=== PATIENT | female | born 1960 | race Caucasian/White ===

== ENCOUNTER 2016-04-10 08:33 | Outpatient (CLI) ==
[2016-04-10 09:23] LABS: BILIRUBIN,URINE Negative (NEGATIVE); KETONES,URINE Negative (NEGATIVE); LEUKOCYTE ESTERASE ,URINE 1+ (NEGATIVE); NITRITE,URINE Negative (NEGATIVE); PROTEIN,URINE 2+ (NEGATIVE); URINE, BLOOD 1+ (NEGATIVE)
[2016-04-10 09:30] LABS: BASOPHILS % (AUTO) 0.4 % (0.0-3.0); EOSINOPHILS # (AUTO) 0.1 K/ul (0.0-0.7); EOSINOPHILS % (AUTO) 2.6 % (0.0-7.0); HEMATOCRIT 35.6 % (37.0-47.0); IMMATURE GRANULOCYTE % (AUTO) 0.4 % (0.0-5.0); LYMPHOCYTES # (AUTO) 1.5 K/uL (0.60-3.4); LYMPHOCYTES % (AUTO) 28.3 (10.0-50.0); MEAN CORPUSCULAR HEMOGLOBIN 29.3 pg (27.0-31.0); MEAN CORPUSCULAR HGB CONC 33.7 (31.8-35.4); MEAN CORPUSCULAR VOLUME 86.8 fl (81.0-99.0); MONOCYTES # (AUTO) 0.4 K/uL (0.4-2.0); MONOCYTES % (AUTO) 7.9 (0-10); NEUTROPHILS # (AUTO) 3.2 K/ul (2.0-6.9); NEUTROPHILS % (AUTO) 60.4; PLATELET COUNT 213 10^3/uL (140-440); WHITE BLOOD COUNT 5.33 K/ul (4.6-10.2)
[2016-04-10 09:31] LABS: ADD URINE MICROSCOPIC YES
[2016-04-10 09:32] LABS: BACTERIA,URINE TRACE (NOT PRESENT)
[2016-04-10 10:54] LABS: ALBUMIN 3.9 g/dL (3.4-5.0); ALBUMIN/GLOBULIN RATIO 1.15; ANION GAP 16.5; BILIRUBIN,TOTAL 0.46 mg/dL (0.00-1.20); BUN/CREATININE RATIO 29.87; CALCIUM 9.5 mg/dL (8.2-10.2); CHOL/HDL RATIO 4.2 (4.5-5.5); CREATININE 0.77 mg/dL (0.60-1.30); POTASSIUM 3.5 mmol/L (3.5-5.10); TOTAL PROTEIN 7.3 g/dL (6.4-8.2)
== END 2016-04-10 08:34 | disposition home or self-care (01) ==
LOC: LAB 08:33
PROVIDERS: ATTEND Family Medicine
DX: E78.5 Hyperlipidemia, unspecified (principal); I10 Essential (primary) hypertension; E11.9 Type 2 diabetes mellitus without complications; Z79.899 Other long term (current) drug therapy
CPT/HCPCS: 36415; 80053; 80061; 81001; 83036; 85025

== ENCOUNTER 2016-04-28 10:50 | Outpatient (CLI) ==
[2016-04-28 11:06] LABS: BILIRUBIN,URINE Negative (NEGATIVE); KETONES,URINE Negative (NEGATIVE); LEUKOCYTE ESTERASE ,URINE Negative (NEGATIVE); NITRITE,URINE Negative (NEGATIVE); PH,URINE 5.5 (5-9); PROTEIN,URINE 1+ (NEGATIVE); URINE, BLOOD Trace-lysed (NEGATIVE)
[2016-04-28 11:11] LABS: ADD URINE MICROSCOPIC YES
== END 2016-04-28 10:51 | disposition home or self-care (01) ==
LOC: LAB 10:50
PROVIDERS: ATTEND Family Medicine
DX: N30.00 Acute cystitis without hematuria (principal)
CPT/HCPCS: 81001

== ENCOUNTER 2016-07-28 08:03 | Outpatient (CLI) | payer OTHER ==
[2016-07-28 08:21] LABS: BASOPHILS % (AUTO) 0.4 % (0.0-3.0); EOSINOPHILS # (AUTO) 0.2 K/ul (0.0-0.7); EOSINOPHILS % (AUTO) 3.9 % (0.0-7.0); HEMATOCRIT 32.7 % (37.0-47.0); HEMOGLOBIN 11.3 g/dl (12.0-16.0); IMMATURE GRANULOCYTE % (AUTO) 0.2 % (0.0-5.0); LYMPHOCYTES # (AUTO) 1.9 K/uL (0.60-3.4); LYMPHOCYTES % (AUTO) 35.8 (10.0-50.0); MEAN CORPUSCULAR HEMOGLOBIN 29.8 pg (27.0-31.0); MEAN CORPUSCULAR HGB CONC 34.6 (31.8-35.4); MEAN CORPUSCULAR VOLUME 86.3 fl (81.0-99.0); MONOCYTES # (AUTO) 0.4 K/uL (0.4-2.0); MONOCYTES % (AUTO) 7.3 (0-10); NEUTROPHILS # (AUTO) 2.8 K/ul (2.0-6.9); NEUTROPHILS % (AUTO) 52.4; PLATELET COUNT 185 10^3/uL (140-440); RED BLOOD COUNT 3.79 10^6/ul (4.20-5.40); WHITE BLOOD COUNT 5.34 K/ul (4.6-10.2)
[2016-07-28 08:45] LABS: BILIRUBIN,URINE Negative (NEGATIVE); KETONES,URINE Negative (NEGATIVE); LEUKOCYTE ESTERASE ,URINE Trace (NEGATIVE); NITRITE,URINE Negative (NEGATIVE); PH,URINE 8.5 (5-9); PROTEIN,URINE 2+ (NEGATIVE); URINE, BLOOD Trace-intact (NEGATIVE)
[2016-07-28 08:57] LABS: ADD URINE MICROSCOPIC YES
[2016-07-28 09:00] LABS: ALBUMIN 3.6 g/dL (3.4-5.0); ALBUMIN/GLOBULIN RATIO 1.09; BACTERIA,URINE TRACE (NOT PRESENT); BILIRUBIN,TOTAL 0.44 mg/dL (0.00-1.20); BUN/CREATININE RATIO 25.33; CALCIUM 9.7 mg/dL (8.2-10.2); CHOL/HDL RATIO 4.1 (4.5-5.5); CREATININE 0.75 mg/dL (0.60-1.30); TOTAL PROTEIN 6.9 g/dL (6.4-8.2)
== END 2016-07-28 08:04 | disposition home or self-care (01) ==
LOC: LAB 08:03
PROVIDERS: ATTEND Family Medicine
DX: E78.5 Hyperlipidemia, unspecified (principal); I10 Essential (primary) hypertension; E11.9 Type 2 diabetes mellitus without complications; E66.9 Obesity, unspecified; F32.9 Major depressive disorder, single episode, unspecified; Z79.899 Other long term (current) drug therapy
CPT/HCPCS: 36415; 80053; 80061; 81001; 83036; 84439; 84443; 85025

== ENCOUNTER 2016-09-16 09:39 | Outpatient (CLI) ==
[2016-09-16 10:01] LABS: BASOPHILS % (AUTO) 0.4 % (0.0-3.0); EOSINOPHILS # (AUTO) 0.1 K/ul (0.0-0.7); EOSINOPHILS % (AUTO) 2.1 % (0.0-7.0); HEMOGLOBIN 11.8 g/dl (12.0-16.0); IMMATURE GRANULOCYTE % (AUTO) 0.2 % (0.0-5.0); LYMPHOCYTES # (AUTO) 1.4 K/uL (0.60-3.4); MEAN CORPUSCULAR HEMOGLOBIN 29.3 pg (27.0-31.0); MEAN CORPUSCULAR HGB CONC 34.7 (31.8-35.4); MEAN CORPUSCULAR VOLUME 84.4 fl (81.0-99.0); MONOCYTES # (AUTO) 0.5 K/uL (0.4-2.0); MONOCYTES % (AUTO) 8.6 (0-10); NEUTROPHILS # (AUTO) 3.6 K/ul (2.0-6.9); NEUTROPHILS % (AUTO) 63.7; PLATELET COUNT 186 10^3/uL (140-440); RED BLOOD COUNT 4.03 10^6/ul (4.20-5.40); WHITE BLOOD COUNT 5.69 K/ul (4.6-10.2)
[2016-09-16 10:18] LABS: ALBUMIN 3.7 g/dL (3.4-5.0); ALBUMIN/GLOBULIN RATIO 1.19; ANION GAP 16.6; BILIRUBIN,TOTAL 0.42 mg/dL (0.00-1.20); BUN/CREATININE RATIO 28.16; CALCIUM 9.3 mg/dL (8.2-10.2); CHOL/HDL RATIO 4.5 (4.5-5.5); CREATININE 0.71 mg/dL (0.60-1.30); POTASSIUM 3.6 mmol/L (3.5-5.10); TOTAL PROTEIN 6.8 g/dL (6.4-8.2)
== END 2016-09-16 09:40 | disposition home or self-care (01) ==
LOC: LAB 09:39
PROVIDERS: ATTEND Family Medicine
DX: E11.9 Type 2 diabetes mellitus without complications (principal); R73.9 Hyperglycemia, unspecified; I10 Essential (primary) hypertension; E78.1 Pure hyperglyceridemia; Z79.899 Other long term (current) drug therapy
CPT/HCPCS: 36415; 80053; 80061; 83036; 85025

== ENCOUNTER 2016-10-16 09:00 | Outpatient (CLI) | END 2016-10-16 09:01 | disposition home or self-care (01) | LOC: CAR 09:00 | PROVIDERS: ATTEND Family Medicine | DX: I10 Essential (primary) hypertension (principal); Z79.899 Other long term (current) drug therapy | CPT/HCPCS: 93005; 93010 ==

== ENCOUNTER 2016-11-03 08:45 | Outpatient (CLI) ==
[2016-11-03 09:08] LABS: BASOPHILS % (AUTO) 0.6 % (0.0-3.0); EOSINOPHILS # (AUTO) 0.1 K/ul (0.0-0.7); EOSINOPHILS % (AUTO) 2.3 % (0.0-7.0); HEMATOCRIT 34.6 % (37.0-47.0); HEMOGLOBIN 12.1 g/dl (12.0-16.0); IMMATURE GRANULOCYTE % (AUTO) 0.2 % (0.0-5.0); LYMPHOCYTES # (AUTO) 1.9 K/uL (0.60-3.4); LYMPHOCYTES % (AUTO) 35.8 (10.0-50.0); MEAN CORPUSCULAR HEMOGLOBIN 29.9 pg (27.0-31.0); MEAN CORPUSCULAR VOLUME 85.4 fl (81.0-99.0); MONOCYTES # (AUTO) 0.4 K/uL (0.4-2.0); MONOCYTES % (AUTO) 8.3 (0-10); NEUTROPHILS # (AUTO) 2.8 K/ul (2.0-6.9); NEUTROPHILS % (AUTO) 52.8; PLATELET COUNT 174 10^3/uL (140-440); RED BLOOD COUNT 4.05 10^6/ul (4.20-5.40)
[2016-11-03 09:50] LABS: ALBUMIN 3.2 g/dL (3.4-5.0); ALBUMIN/GLOBULIN RATIO 0.97; ANION GAP 13.7; BILIRUBIN,TOTAL 0.34 mg/dL (0.00-1.20); BUN/CREATININE RATIO 29.23; CALCIUM 9.5 mg/dL (8.2-10.2); CHOL/HDL RATIO 4.7 (4.5-5.5); CREATININE 0.65 mg/dL (0.60-1.30); POTASSIUM 3.7 mmol/L (3.5-5.10); TOTAL PROTEIN 6.5 g/dL (6.4-8.2)
== END 2016-11-03 08:46 | disposition home or self-care (01) ==
LOC: LAB 08:45
PROVIDERS: ATTEND Family Medicine
DX: E78.5 Hyperlipidemia, unspecified (principal); I10 Essential (primary) hypertension; R73.9 Hyperglycemia, unspecified; E66.9 Obesity, unspecified; Z79.899 Other long term (current) drug therapy
CPT/HCPCS: 36415; 80053; 80061; 84439; 84443; 85025

== ENCOUNTER 2017-01-07 08:53 | Outpatient (CLI) ==
[2017-01-07 09:29] LABS: BASOPHILS % (AUTO) 0.2 % (0.0-3.0); EOSINOPHILS # (AUTO) 0.1 K/ul (0.0-0.7); HEMATOCRIT 33.2 % (37.0-47.0); HEMOGLOBIN 11.4 g/dl (12.0-16.0); IMMATURE GRANULOCYTE % (AUTO) 0.2 % (0.0-5.0); LYMPHOCYTES # (AUTO) 1.4 K/uL (0.60-3.4); LYMPHOCYTES % (AUTO) 24.9 (10.0-50.0); MEAN CORPUSCULAR HEMOGLOBIN 29.9 pg (27.0-31.0); MEAN CORPUSCULAR HGB CONC 34.3 (31.8-35.4); MEAN CORPUSCULAR VOLUME 87.1 fl (81.0-99.0); MONOCYTES # (AUTO) 0.6 K/uL (0.4-2.0); MONOCYTES % (AUTO) 10.9 (0-10); NEUTROPHILS # (AUTO) 3.6 K/ul (2.0-6.9); NEUTROPHILS % (AUTO) 62.8; PLATELET COUNT 182 10^3/uL (140-440); RED BLOOD COUNT 3.81 10^6/ul (4.20-5.40); WHITE BLOOD COUNT 5.79 K/ul (4.6-10.2)
[2017-01-07 09:36] LABS: BILIRUBIN,URINE Negative (NEGATIVE); KETONES,URINE Negative (NEGATIVE); LEUKOCYTE ESTERASE ,URINE 1+ (NEGATIVE); NITRITE,URINE Negative (NEGATIVE); PROTEIN,URINE 2+ (NEGATIVE); URINE, BLOOD 1+ (NEGATIVE)
[2017-01-07 09:54] LABS: ADD URINE MICROSCOPIC YES
[2017-01-07 09:55] LABS: BACTERIA,URINE 1+ (NOT PRESENT)
[2017-01-07 10:06] LABS: ALBUMIN 3.2 g/dL (3.4-5.0); ALBUMIN/GLOBULIN RATIO 0.84; ANION GAP 14.5; BILIRUBIN,TOTAL 0.37 mg/dL (0.00-1.20); BUN/CREATININE RATIO 30.76; CALCIUM 9.4 mg/dL (8.2-10.2); CHOL/HDL RATIO 5.6 (4.5-5.5); CREATININE 0.78 mg/dL (0.60-1.30); POTASSIUM 3.5 mmol/L (3.5-5.10)
== END 2017-01-07 08:54 | disposition home or self-care (01) ==
LOC: LAB 08:53
PROVIDERS: ATTEND Family Medicine
DX: Z01.812 Encounter for preprocedural laboratory examination (principal); E78.5 Hyperlipidemia, unspecified; E11.9 Type 2 diabetes mellitus without complications; I10 Essential (primary) hypertension
CPT/HCPCS: 36415; 80053; 80061; 81001; 84439; 84443; 85025

== ENCOUNTER 2017-06-16 07:37 | Outpatient (CLI) | END 2017-06-16 07:38 | disposition home or self-care (01) | LOC: LAB 07:37 | PROVIDERS: ATTEND Family Medicine | DX: E78.5 Hyperlipidemia, unspecified (principal); I10 Essential (primary) hypertension; E11.9 Type 2 diabetes mellitus without complications; E66.9 Obesity, unspecified; Z79.899 Other long term (current) drug therapy | CPT/HCPCS: 36415; 80053; 80061; 81001; 83036; 84439; 84443; 85025; 87086; 93005; 93010 ==

== ENCOUNTER 2017-06-22 08:37 | Day surgery (SDC) ==
[2017-06-22] MEDS: TETRACAINE 0.5% UNIT-DOSE OP PRN ×3 (08:55→09:25)
[2017-06-22] MEDS: AK-DILATE 10% OPTH SOL OP PRN ×3 (08:55→09:07)
[2017-06-22] MEDS: CYCLOGYL 2% OPTH OP PRN ×3 (08:56→09:07)
[2017-06-22] MEDS: OCUFEN 0.03% OPTH SOL OP PRN ×3 (08:57→09:25)
[2017-06-22] MEDS ORDERED: LIDOCAINE 1% 20 ML MDV ID STA (09:01)
[2017-06-22] MEDS ORDERED: DIAMOX PO STA ×2 (09:01→09:29)
[2017-06-22] MEDS ORDERED: LIDOCAINE HCL 1% SDV INJ STA (09:02)
[2017-06-22 09:28] VITALS: TEMP 98.6
[2017-06-22] MEDS ORDERED: VERSED ONE (11:10)
[2017-06-22] MEDS ORDERED: BETADINE OPTH PREP OP ONE (11:10)
[2017-06-22] MEDS ORDERED: ADRENALIN 1:1000 SDV IR STA (11:18)
[2017-06-22 15:31] VITALS: BP 145/59
--- NOTE | 2017-06-23 13:51 | OP ---
PREOPERATIVE DIAGNOSIS: ADVANCED NUCLEAR SCLEROTIC CATARACT LEFT EYE. POSTOPERATIVE DIAGNOSIS: SAME. OPERATION PHACOEMULSIFICATION ASPIRATION OF CATARACT LEFT EYE. PLACEMENT OF POSTERIOR CHAMBER LENS. PHACO TIME 40.1 SECONDS AT 10% POWER. LENS MODEL ALOK [id number]. DIOPTER +15.0D. TECHNIQUE: CLEAR CORNEA. ANESTHESIA: TOPICAL ANESTHESIA W/ANESTHESIA MONITORING. OPERATIVE REPORT: Topical anesthesia consisting of Tetracaine was applied to the cornea and Xylocaine Methyl Paraben free of MFP was injected intracamerally into the anterior chamber. The patient was then brought into the operating room , prepped and draped in the usual ophthalmic manner. A lid speculum was placed and the operating microscope was used. A paracentesis was made at the 3 o' clock position. A clear corneal incision was made just out to the limbus. The anterior chamber was entered just inside the clear cornea. Viscoelastic was injected into the anterior chamber. A capsulotomy was performed with a bent # 27 gauge needle. Phacoemulsification was then performed in the posterior chamber. After completion of the phacoemulsification, residual cortical material was aspirated with the irrigation-aspiration system. The posterior capsule was polished. Viscoelastic was injected into the anterior and posterior chambers to inflate the capsular bag. Lens were placed via an Unfolder system and stabilized in the bag. Viscoelastic was removed from the anterior chamber. The wound was checked for any leakage. The four sponges were removed from the fornix. Topical antibiotic steroid and nonsteroidal drops were also applied to the cornea. A Bermudez shield was applied. The patient left the operating room in good condition without any complications. 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 INTRAOPERATIVE MEDICATIONS: Xylocaine Methyl Paraben Free MPF MTDD
== END 2017-06-22 12:00 | disposition home or self-care (01) ==
LOC: SURG 08:37
PROVIDERS: ATTEND Ophthalmology
DX: H25.12 Age-related nuclear cataract, left eye (principal); H04.123 Dry eye syndrome of bilateral lacrimal glands; H18.422 Band keratopathy, left eye

== ENCOUNTER 2018-03-22 08:08 | Outpatient (CLI) | payer OTHER ==
--- NOTE | 2018-03-22 09:34 | US ---
EXAM: Renal ultrasound. History: Chronic kidney disease. Technique: Multiple sonographic images through the kidneys were obtained. Color duplex Doppler was used to interrogate vascular flow. Findings: The right kidney measures 12.9 cm in long length demonstrating normal cortical echogenicity without e vidence for hydronephrosis or shadowing calculus. 2.3 cm mixed echogenic lesion within the mid pole of the right kidney and 1.6 cm mixed echogenic lesion within the inferior pole of the right kidney. 1.9 cm simple right renal cyst. The left kidney measures 12.4 cm in long length demonstrating normal cortical echogenicity without ev idence for hydronephrosis or shadowing calculus. 1.8 cm simple cyst. The visualized bladder demonstrates no gross abnormality. Impression: 1. Indeterminate complex right renal lesions. Recommend further evaluation with CT or MR renal mass protocol. 2. No hydronephrosis
== END 2018-03-22 08:09 | disposition home or self-care (01) ==
LOC: RAD 08:08
PROVIDERS: ATTEND Internal Medicine Nephrology
DX: N18.1 Chronic kidney disease, stage 1 (principal)

== ENCOUNTER 2018-04-02 08:41 | Outpatient (CLI) | payer OTHER ==
--- NOTE | 2018-04-02 10:17 | CT ---
EXAM: CT of the abdomen pelvis with and without contrast History: Chronic kidney disease. Right renal mass Comparison: Renal ultrasound 03/22/2018 Technique: Multiplanar CT images through the abdomen pelvis were obtained with and without the admin istration of IV contrast Findings: Heart is mildly enlarged. Lung bases are clear. No acute osseous abnormalities. Severe degenerative disc disease at L5-S1. A few right renal calculi with the largest measuring 3 mm. No left renal calculi. 2 mm calculus wit hin the proximal right ureter not causing any hydronephrosis. 2.9 cm indeterminate left adrenal nodu le. Right adrenal gland is unremarkable. No gallstones identified by CT. No liver lesions. 1.4 cm indeterminate lesion within the superior spleen. Tiny hiatal hernia. Pancreas is within normal nayak its. No bowel obstruction. Tiny fat containing umbilical hernia. No bladder wall thickening. Uter us is not seen and likely has been surgically removed. Colonic diverticulosis. Moderate stool seen distending the rectum. 2.1 cm mildly enhancing lesion within the mid pole of the right kidney. A fe w small simple bilateral renal cysts. No lymphadenopathy. Impression: 1. Enhancing lesion within the mid pole of the right kidney suspicious for malignancy. Biopsy recom mended. 2. Indeterminate left adrenal nodule. Recommend further evaluation with MRI adrenal mass protocol. 3. Right nephrolithiasis. 4. 2 mm proximal right ureteral calculus with no hydronephrosis. 5. Small indeterminate lesion within the superior spleen. This can also be evaluated with abdominal MRI.
== END 2018-04-02 08:42 | disposition home or self-care (01) ==
LOC: RAD 08:41
PROVIDERS: ATTEND Internal Medicine Nephrology
DX: N18.1 Chronic kidney disease, stage 1 (principal)

== ENCOUNTER 2018-04-21 08:16 | Outpatient (CLI) ==
--- NOTE | 2018-04-21 09:44 | CT ---
EXAM: CT of the abdomen and pelvis with and without contrast History: Left adrenal nodule. Comparison: CT abdomen pelvis 04/02/2018 Technique: Multiplanar CT images through the abdomen pelvis were obtained with and without the admin istration of IV contrast Findings: Lung bases are free of consolidation. No acute osseous abnormalities. Severe degenerativ e disc disease at L5-S1. No change in the 2.1 cm enhancing mass within the right kidney. The previously described 2 mm proxim al right ureteral calculus is no longer seen. Extrarenal pelvis again seen on the left. 2.9 cm left adrenal nodule with indeterminate enhancement characteristics. Pancreas is unremarkable. No gallst ones are identified by CT. No focal liver lesions. 1.4 cm lesion within the spleen fills than on th e more delayed images and is consistent with a benign hemangioma. Small hiatal hernia. No dilated l oops of bowel. No bladder wall thickening. No perirectal inflammation. Scattered colonic stool. N o free air and no ascites. Impression: 1. No change in the enhancing lesion within the right kidney which is suspicious for malignancy. Bi opsy recommended. 2. No change in the left adrenal nodule with indeterminate enhancement characteristics. An MRI woul d be useful to further characterize. If patient cannot have an MRI then a biopsy will be necessary t o determine etiology. 3. Benign splenic hemangioma
== END 2018-04-21 08:17 | disposition home or self-care (01) ==
LOC: RAD 08:16
PROVIDERS: ATTEND Internal Medicine Nephrology
DX: E27.9 Disorder of adrenal gland, unspecified (principal)

== ENCOUNTER 2018-07-07 10:36 | Outpatient (CLI) | END 2018-07-07 10:37 | disposition home or self-care (01) | LOC: CAR 10:36 | PROVIDERS: ATTEND Family Medicine | DX: I49.9 Cardiac arrhythmia, unspecified (principal); E78.2 Mixed hyperlipidemia; Z86.39 Personal history of other endocrine, nutritional and metabolic disease | CPT/HCPCS: 36415; 80053; 80061; 83036; 85025; 93005; 93010 ==